=== PATIENT | male | born 1995 | race Caucasian/White ===

== ENCOUNTER 2017-03-17 11:08 | Emergency (ER) | payer BC ==
[~2017-03-17] VITALS: Ht 185.4 cm; Wt 72.6 kg
[2017-03-17] MEDS ORDERED: LORazepam Inj 2mg/ml 1ml IV ONE (11:30)
[2017-03-17 11:49] LABS: BASOPHILS % (AUTO) 0.5 % (0.0-2.0); HEMOGLOBIN 15.5 G/DL (14.2-18.0); LYMPHOCYTES % (AUTO) 11.2 % (20.0-45.0); MEAN CORPUSCULAR VOLUME 88 FL (80-99); MONOCYTES % (AUTO) 4.6 % (1.0-10.0); NEUTROPHILS % (AUTO) 83.7 % (45.0-75.0); PLATELET COUNT 286 K/UL (150-450); RED BLOOD COUNT 4.91 M/UL (4.70-6.10); RED CELL DISTRIBUTION WIDTH 11.5 % (11.6-14.8); WHITE BLOOD COUNT 9.5 K/UL (4.8-10.8)
[2017-03-17 12:03] VITALS: BP 155/69
[2017-03-17 12:03] LABS: ANION GAP 10 mmol/L (5-15); BLOOD UREA NITROGEN 6 mg/dL (7-18); CALCIUM 8.9 MG/DL (8.5-10.1); CARBON DIOXIDE 27 MMOL/L (21-32); CHLORIDE 102 MMOL/L (98-107); CREATININE 1.1 MG/DL (0.55-1.30); POTASSIUM 4.3 MMOL/L (3.5-5.1); SODIUM 138 MMOL/L (136-145)
[2017-03-17 12:11] LABS: ALANINE AMINOTRANSFERASE 44 U/L (12-78); ALBUMIN 4.5 G/DL (3.4-5.0); ALBUMIN/GLOBULIN RATIO 1.3 (1.0-2.7); ALKALINE PHOSPHATASE 68 U/L (46-116); ASPARTATE AMINO TRANSFERASE 43 U/L (15-37); BILIRUBIN,TOTAL 1.3 MG/DL (0.2-1.0); CREATINE KINASE 810 U/L (26-308)
[2017-03-17 12:52] LABS: BILIRUBIN,DIRECT 0.2 MG/DL (0.0-0.3)
[2017-03-17 15:39] VITALS: BP 114/63
--- NOTE | 2017-03-17 16:24 | Emergency Room Report ---
History of Present Illness General Chief Complaint: Overdose Source: EMS (Perico Miller) Present Illness HPI Patient's 22-year-old male presented after increased generalized weakness. Patient was noted to have a recently used ecstasy as well as alcohol. The patient noted be tachycardic. Patient stated that he had been ecstasy in the past without using alcohol. The patient was noted to be somewhat confused by police and was sent for further evaluation to patient denies any headache (Perico Miller) Allergies: Coded Allergies: No Known Allergies (Unverified , 03/17/17) Patient History Past Medical History: see triage record Reviewed Nursing Documentation: PMH: Agreed, PSxH: Agreed (Perico Miller) Nursing Documentation-PMH Past Medical History: No Stated History (Perico Miller) Review of Systems All Other Systems: limited - by mental status (Perico Miller) Physical Exam Vital Signs Date Time Temp Pulse Resp B/P (MAP) Pulse Ox O2 Delivery O2 Flow Rate FiO2 03/17/17 11:09 99.0 159 16 157/78 100 Room Air Sp02 EP Interpretation: reviewed, normal General Appearance: normal inspection, well appearing, no apparent distress, alert, GCS 15 Head: atraumatic Eyes: bilateral eye abnormal pupil - dilated ENT: normal ENT inspection, hearing grossly normal, normal voice Neck: normal inspection, full range of motion, supple, no bony tend Respiratory: normal inspection, lungs clear, normal breath sounds, no respiratory distress, no retraction, no wheezing Cardiovascular #1: no edema, tachycardia Gastrointestinal: normal inspection, normal bowel sounds, non tender, soft, no guarding, no hernia Genitourinary: no CVA tenderness Musculoskeletal: normal inspection, back normal, normal range of motion Neurologic: normal inspection, alert, responsive, black topper III-XII nml as tested, motor strength/tone normal, speech normal Psychiatric: normal inspection, judgement/insight normal, mood/affect normal Skin: normal inspection, normal color, no rash (Perico Miller) Medical Decision Making Diagnostic Impression: Primary Impression: Drug overdose Additional Impression: Alcohol intoxication ER Course Patient presented for altered mental status. Differential diagnosis included but was not limited to ischemic stroke, alcohol intoxication, drug abuse, meningitis, subarachnoid hemorrhage, hypoglycemia, spinal cord injury, neurodegenerative disorder, urinary tract infection, hypoxemia. Patient noted have exam consistent with drug and alcohol intoxication. Patient was given IV fluids. The patient's CPK was minimally elevated. Patient was given Ativan for agitation. Patient was endorsed Dr. Sorenson pending sobering. Labs Test 03/17/17 11:30 White Blood Count 9.5 K/UL (4.8-10.8) Red Blood Count 4.91 M/UL (4.70-6.10) Hemoglobin 15.5 G/DL (14.2-18.0) Hematocrit 43.0 % (42.0-52.0) Mean Corpuscular Volume 88 FL (80-99) Mean Corpuscular Hemoglobin 31.5 PG (27.0-31.0) Mean Corpuscular Hemoglobin Concent 35.9 G/DL (32.0-36.0) Red Cell Distribution Width 11.5 % (11.6-14.8) Platelet Count 286 K/UL (150-450) Mean Platelet Volume 6.8 FL (6.5-10.1) Neutrophils (%) (Auto) 83.7 % (45.0-75.0) Lymphocytes (%) (Auto) 11.2 % (20.0-45.0) Monocytes (%) (Auto) 4.6 % (1.0-10.0) Eosinophils (%) (Auto) 0.0 % (0.0-3.0) Basophils (%) (Auto) 0.5 % (0.0-2.0) Sodium Level 138 MMOL/L (136-145) Potassium Level 4.3 MMOL/L (3.5-5.1) Chloride Level 102 MMOL/L (98-107) Carbon Dioxide Level 27 MMOL/L (21-32) Anion Gap 10 mmol/L (5-15) Blood Urea Nitrogen 6 mg/dL (7-18) Creatinine 1.1 MG/DL (0.55-1.30) Estimat Glomerular Filtration Rate > 60 mL/min (>60) Glucose Level 117 MG/DL (74-106) Calcium Level 8.9 MG/DL (8.5-10.1) Total Bilirubin 1.3 MG/DL (0.2-1.0) Direct Bilirubin 0.2 MG/DL (0.0-0.3) Aspartate Amino Transf (AST/SGOT) 43 U/L (15-37) Alanine Aminotransferase (ALT/SGPT) 44 U/L (12-78) Alkaline Phosphatase 68 U/L (46-116) Total Creatine Kinase 810 U/L (26-308) Troponin I 0.000 ng/mL (0.000-0.056) Total Protein 8.0 G/DL (6.4-8.2) Albumin 4.5 G/DL (3.4-5.0) Globulin 3.5 g/dL Albumin/Globulin Ratio 1.3 (1.0-2.7) Salicylates Level < 0.2 ug/mL (2.8-20) Acetaminophen Level < 2 MCG/ML (10-30) Serum Alcohol 207 mg/dL (Perico Miller) ER Course Patient signed out to me by Dr Miller at 230pm At 445pm, much more awake Alert and oriented X3 has wallet, phone Lives in [place] Acknowledged, drug, etoh abuse DC ER course: Patient has remained stable during ED stay. Disposition: Patient is to be discharged to home. Patient is instructed to follow up with their primary care doctor within 5 days. Strict return precautions discussed with patient such as fever, chills, worsening/severe pain, nausea, vomiting, which may indicate severe illness. Patient verbalizes understanding and agrees with plan. Please note that this Emergency Department Report was dictated using [employer] systems administrator technology software, occasionally this can lead to erroneous entry secondary to interpretation by the dictation equipment (ALVA SORENSON M.D.) Last Vital Signs Date Time Temp Pulse Resp B/P (MAP) Pulse Ox O2 Delivery O2 Flow Rate FiO2 03/17/17 15:39 134 25 114/63 98 Room Air 03/17/17 11:09 99.0 Status: improved (Perico Miller) Status: improved (ALVA SORENSON M.D.) Disposition: HOME, SELF-CARE Condition: Stable Referrals: NOT CHOSEN IPA/,REFERRING (PCP) Perico Miller Mar 17, 2017 16:24 ALVA SORENSON M.D. Mar 17, 2017 16:44
[2017-03-17 18:14] VITALS: BP 134/96
== END 2017-03-17 18:15 | disposition home or self-care (01) ==
LOC: EDBD 11:08 → EMR 12:00
DX: T43.621A Poisoning by amphetamines, accidental (unintentional), initial encounter (principal); F10.129 Alcohol abuse with intoxication, unspecified; R53.1 Weakness; R41.82 Altered mental status, unspecified; R00.0 Tachycardia, unspecified
CPT/HCPCS: 36415; 80053; 80329; 82248; 82550; 84484; 85025; 96361; 96374; 99284